=== PATIENT | male | born 1965 | race Caucasian/White ===

== ENCOUNTER 2016-11-04 08:02 | Outpatient (CLI) | payer OTHER | END 2016-11-04 08:03 | disposition home or self-care (01) | LOC: MADLAB 08:02 | PROVIDERS: ATTEND Internal Medicine | DX: E05.90 Thyrotoxicosis, unspecified without thyrotoxic crisis or storm (principal) | CPT/HCPCS: 36415; 84443 ==

== ENCOUNTER 2016-12-30 08:20 | Outpatient (CLI) | payer OTHER | END 2016-12-30 08:21 | disposition home or self-care (01) | LOC: MADLAB 08:20 | PROVIDERS: ATTEND Internal Medicine | DX: E05.90 Thyrotoxicosis, unspecified without thyrotoxic crisis or storm (principal) | CPT/HCPCS: 36415; 84443 ==

== ENCOUNTER 2017-03-10 08:25 | Outpatient (CLI) | payer OTHER | END 2017-03-10 08:26 | disposition home or self-care (01) | LOC: MADLAB 08:25 | PROVIDERS: ATTEND Internal Medicine | DX: E05.00 Thyrotoxicosis with diffuse goiter without thyrotoxic crisis or storm (principal) | CPT/HCPCS: 36415; 84443 ==

== ENCOUNTER 2024-07-02 10:07 | Outpatient (CLI) | payer BC, OTHER | END 2024-07-02 10:08 | disposition home or self-care (01) | LOC: MADLAB 10:07 → MADRAD 10:08 | PROVIDERS: ATTEND Family Medicine | DX: R05.3 Chronic cough (principal) | CPT/HCPCS: 71046 ==